=== PATIENT | male | born 1995 | race African-American/Black ===

== ENCOUNTER 2017-05-20 12:42 | Emergency (ER) | payer OTHER ==
[2017-05-20 12:56] VITALS: BP 132/62
--- NOTE | 2017-05-20 15:01 | UC ---
Skin Complaint HPI - HPI Summary HPI Summary: 21yo BM c/o itchy truncal and UE rash on and off since march. Rash started out in the back with brown patches but then it becomes extremely itchy and became more diffuse spreading to B/L arms and and abdomen exacerbated by sweating and warm clothing. - History of Current Complaint Chief Complaint: UCSkin Time Seen by Provider: 05/20/17 14:03 Stated Complaint: RASH Hx Obtained From: Patient Onset/Duration: Gradual Onset, Lasting Weeks Onset Severity: Moderate Current Severity: Severe Pain Intensity: 0 Pain Scale Used: Adult Non Verbal - Allergy/Home Medications Allergies/Adverse Reactions: Allergies Allergy/AdvReac Type Severity Reaction Status Date / Time No Known Allergies Allergy Verified 05/20/17 12:56 Review of Systems Constitutional: Negative Skin: Rash - SEE HPI Eyes: Negative ENT: Negative Respiratory: Negative Cardiovascular: Negative Gastrointestinal: Negative Genitourinary: Negative Motor: Negative Neurovascular: Negative Musculoskeletal: Negative Neurological: Negative Psychological: Negative All Other Systems Reviewed And Are Negative: Yes PMH/Surg Hx/FS Hx/Imm Hx Previously Healthy: Yes - h/o Eczema - Surgical History Surgical History: None - Social History Alcohol Use: Occasionally Substance Use Type: None Smoking Status (MU): Never Smoked Tobacco Physical Exam Triage Information Reviewed: Yes Appearance: Well-Appearing Vital Signs: Initial Vital Signs Temp 36.8 C 05/20/17 12:52 Pulse 89 05/20/17 12:52 Resp 16 05/20/17 12:52 BP 132/62 05/20/17 12:52 Pulse Ox 100 05/20/17 12:52 Vital Signs Reviewed: Yes Eye Exam: Normal ENT Exam: Normal Dental Exam: Normal Neck exam: Normal Neck: Positive: 1 Respiratory Exam: Normal Cardiovascular Exam: Normal Abdominal Exam: Normal Musculoskeletal Exam: Normal Musculoskeletal: Positive: Strength Intact, ROM Intact Neurological Exam: Normal Psychological Exam: Normal Skin Exam: Normal Skin: Positive: rashes, significant lesion(s) - johanna tree pattern brwon patches in the back and small 2-3mm raised flesh colored pruritic and mild excoriated patches diffusely throughout Course/Dx - Course Course Of Treatment: Tinea versicolor exacerbated known eczema vs intermittent heat rash, will tx with topical antifungal and steroid creams. Follow up with derm if symptoms persist. - Diagnoses Provider Diagnoses: tinea versicolor Discharge - Discharge Plan Condition: Stable Disposition: HOME Prescriptions: Betamethasone Linsey 0.1% CRM(NF) [Valisone 0.1% CM(NF)] 1 applic TOPICAL BID PRN 10 Days #1 applic PRN Reason: Pruritis Econazole 1% CREAM (NF) [Econazole 1 % CREAM (NF)] 1 applic TOPICAL DAILY 10 Days #1 tube Patient Education Materials: Tinea Versicolor (ED) Referrals: Daniel Lynch MD [Primary Care Provider] - Additional Instructions: as tolerated
== END 2017-05-20 14:54 | disposition home or self-care (01) ==
LOC: UCEAST 12:42
DX: B36.0 Pityriasis versicolor (principal)
CPT/HCPCS: 99202; G0463